=== PATIENT | female | born 1940 | race Caucasian/White ===

== ENCOUNTER 2018-05-03 07:38 | Outpatient (CLI) | payer MEDICARE ==
[2018-05-03] MEDS ORDERED: Iopamidol 370 76% 100 ML VIAL ONE (10:39)
[2018-05-03] MEDS ORDERED: Gadobenate Dimeglumine 529 MG/1 ML (20ML VIAL) ONE (10:45)
--- NOTE | 2018-05-03 12:38 | MRI ---
MRI PELVIS WITHOUT AND WITHOU CONTRAST: Comparison: None. History: Rectal pain and bleeding. Rectal cancer for staging. Technique: Multiplanar, multisequence MRI images were obtained of the pelvis without and with IV cont rast per rectal cancer protocol. FINDINGS: Tiny foci of high T2 signal in the lower uterine segment may represent nabothian cyst. The urinary bl adder is unremarkable. There is a circumferential mass involving the rectum. This mass is approximately 3.5 cm from the anus . This mass measures approximately 7.2 cm in length. The rectal wall is predominately circumferential ly thickened but is more prominently thickened along the left anterior lateral aspect where it measur es approximately 1.1 cm in thickness. Inferiorly, this mass abuts the pelvic floor. The fat planes be tween the outer rectal wall on the mediolateral left side are slightly blurred and this may extend in to the mesorectal fat. The mass is clear of the mesorectal fascia. There are multiple enlarged lymph nodes in the medial rectal fat. The largest measures 1.4 cm in size . These enlarged lymph nodes are seen bilaterally. The visualized small bowel is unremarkable. No marrow signal abnormality is present. No enlarged lymp h nodes are seen around the pelvic sidewalls. IMPRESSION: Rectal cancer as above. The patient appears to have a T3 tumor. This may be either a T3A or T3B tumor . The patient has multiple enlarged mesorectal fat lymph nodes. There are greater than 4 of these lym ph nodes that are enlarged making this an N2 stage. POS: [facility]
--- NOTE | 2018-05-03 14:00 | CT ---
CT OF THE CHEST WITH CONTRAST CT OF THE ABDOMEN WITH CONTRAST: Date: 05/03/18 COMPARISON: Pelvic MRI dated 05/03/18. HISTORY: Rectal cancer. Staging examination. TECHNIQUE: 1. Multiple contiguous axial images were obtained in a CT of the chest with contrast. Coronal reform ats were performed. 2. Multiple contiguous axial images were obtained in a CT of the abdomen only with contrast. PO cont rast was administered. Coronal reformats were performed. FINDINGS: CT CHEST: Atelectasis is seen in both lung bases. No suspicious pulmonary nodules are appreciated. No pneumotho rax or pleural effusion seen. The heart is normal in size without focal cardiac abnormality. No hilar or mediastinal lymphadenopath y are seen. Atherosclerotic calcifications are seen in the aorta. The bones of the thorax and chest wall soft tissues are unremarkable. CT ABDOMEN: There are two masses in the right lobe of the liver. The largest measures 3.1 cm in size. These magdalena s are suspicious for hepatic metastasis. No biliary dilatation is seen. The gallbladder is not seen a nd may have been removed. Kidneys, adrenal glands, spleen, and pancreas are unremarkable. No abdominal adenopathy is seen. The visualized large and small bowel are unremarkable. Degenerative changes are seen in the spine. No suspicious osseous lesions are identified. The abdomin al wall soft tissues are unremarkable. IMPRESSION: 1. No evidence of intrathoracic metastatic disease. 2. There are two lesions in the right lobe of the liver suspicious for hepatic metastases. POS: ALIC[facility]
== END 2018-05-03 07:39 | disposition home or self-care (01) ==
LOC: MRI 07:38
PROVIDERS: ATTEND Internal Medicine Hematology & Oncology
DX: C20 Malignant neoplasm of rectum (principal)
CPT/HCPCS: 71260; 72197; 74160; 82565; A9579

== ENCOUNTER 2018-05-09 08:36 | Day surgery (SDC) | payer MEDICARE ==
[2018-05-08 09:36] VITALS: BMI 27.1
[~2018-05-09 08:36] MED LIST: Prevnar 13-Val Conj/PF 0.5 ML SYRINGE IM ONE
[2018-05-09 08:58] LABS: PTT 26.1 SEC (22.9-36.1); Prothrombin Time 12.9 SEC (12.0-14.7)
[2018-05-09 09:41] VITALS: BP 140/68; TEMP 98.2
[2018-05-09] MEDS ORDERED: Sodium Bicarbonate 2.5 MEQ/5 ML VIAL ONE (10:03)
[2018-05-09] MEDS ORDERED: Midazolam HCl 2 mg/2 ml Vial ONE (10:03)
[2018-05-09] MEDS ORDERED: Fentanyl 100 MCG/2 ML VIAL ONE (10:04)
--- NOTE | 2018-05-09 12:43 | CT ---
CT GUIDED BIOPSY OF A LIVER MASS: HISTORY: Primary rectal cancer. Hepatic masses. Correlate for metastatic versus primary hepatic malignancy. COMPARISON: Abdomen CT from 05/03/2018. FINDINGS: Successful CT guided biopsy of a hepatic mass in the right hepatic lobe. Two 18 gauge core biopsy sa mples were obtained. Lesional tissue is present. TECHNIQUE: Consent obtained to perform a CT guided biopsy of a right hepatic lobe mass. The lesion was identifi ed. The skin was prepped and draped in a sterile fashion. Lidocaine 1%, buffered with sodium bicarb jean-claude, was used for local anesthesia. Under CT guidance, a 17 gauge metallic trocar was advanced int o the hepatic lesion. Through this trocar, two separate 18 gauge core biopsy samples were obtained. Pathology reports lesional tissue in the first sample. The patient tolerated the procedure well. P ost procedure image does not identify any findings of significant bleeding. There are no immediate p ost procedure complications. IMPRESSION: Successful CT guided biopsy of a right hepatic lobe mass. Final pathologic diagnosis pending. POS: ALICIA
== END 2018-05-09 12:30 | disposition home or self-care (01) ==
LOC: RAD 08:36
PROVIDERS: ATTEND Internal Medicine Hematology & Oncology
PROC: 0FB13ZX Excision of Right Lobe Liver, Percutaneous Approach, Diagnostic (ICD-10-PCS; principal; 2018-05-09)
DX: C20 Malignant neoplasm of rectum (principal); C78.7 Secondary malignant neoplasm of liver and intrahepatic bile duct; I10 Essential (primary) hypertension; G25.81 Restless legs syndrome; Z90.49 Acquired absence of other specified parts of digestive tract; Z88.8 Allergy status to other drugs, medicaments and biological substances; Z79.899 Other long term (current) drug therapy; Z98.890 Other specified postprocedural states
CPT/HCPCS: 36415; 47000; 77002; 85610; 85730; 88307; 88333; 88334; 88341; 88342; J2250; J3010

== ENCOUNTER 2018-05-18 14:07 | Outpatient (CLI) | payer MEDICARE ==
[2018-05-18 15:01] LABS: #Basophils 0.1 thou/uL (0.0-0.2); #Eosinphils 0.3 thou/uL (0.0-0.7); #Lymphocytes 1.6 thou/uL (1.20-3.40); #Monocytes 0.9 thou/uL (0.11-0.59); %Basophils 0.8 % (0.0-1.0); %Eosinophils 3.9 % (0.0-10.0); %Lymphocytes 23.9 % (21.0-51.0); %Monocytes 13.2 % (0.0-10.0); %Neutrophils 58.2 % (42.0-75.0); Hemoglobin 11.5 g/dL (12.0-16.0); Mean Corpuscular HGB CONC 33.5 g/dL (32.0-36.0); Mean Corpuscular Hemoglobin 31.5 pg (27.0-31.0); Mean Corpuscular Volume 93.9 fL (78.0-98.0); Mean Platelet Volume 8.1 fL (7.4-10.4); Platelet Count 304 thou/uL (130-400); RBC Distribution Width 12.6 % (11.5-14.5); Red Blood Cell (RBC) Count 3.65 mill/uL (4.20-5.40); White Blood Cell (WBC) Count 6.8 thou/uL (4.8-10.8)
[2018-05-18 15:27] LABS: Anion Gap 16 mmol/L (10-20); BUN (Urea Nitrogen) 12 mg/dL (9.8-20.1); Calc. Creatinine Clearance 0 mL/min (70-130); Calcium 9.7 mg/dL (7.8-10.44); Carbon Dioxide 27 mmol/L (23-31); Chloride 103 mmol/L (98-107); Estimated GFR-MDRD 54; Glucose 103 mg/dL (83-110); Potassium 3.6 mmol/L (3.5-5.1); Sodium 142 mmol/L (136-145)
== END 2018-05-18 14:08 | disposition home or self-care (01) ==
LOC: LABBT 14:07
PROVIDERS: ATTEND Surgery
DX: Z01.818 Encounter for other preprocedural examination (principal); C20 Malignant neoplasm of rectum
CPT/HCPCS: 80048; 85025; 93005; 93010

== ENCOUNTER 2018-05-19 06:35 | Day surgery (SDC) | payer MEDICARE ==
[2018-05-18 12:46] VITALS: BMI 26.5
[2018-05-19] MEDS ORDERED: PHENYLEPHRINE-NS 100 MCG/ML 10 ML SYRINGE ONE (07:47)
[2018-05-19] MEDS ORDERED: PROPOFOL 200 MG/20 ML VIAL ONE (07:47)
[2018-05-19] MEDS ORDERED: Ondansetron PF 4 MG/2 ML Vial ONE (07:47)
[2018-05-19] MEDS ORDERED: Lidocaine 1% PF 5 ML VIAL ONE (07:47)
[2018-05-19] MEDS ORDERED: Ketorolac Tromethamine 30 MG/ML VIAL ONE (07:47)
[2018-05-19] MEDS ORDERED: CEFAZOLIN 2 GM/50 ML BAG ONE (09:23)
[2018-05-19] MEDS ORDERED: Bupivacaine/Epinephrine 0.25% 30 ML VIAL ONE (09:31)
[2018-05-19] MEDS ORDERED: Famotidine/PF 20 mg/2ml Vial ONE (09:37)
--- NOTE | 2018-05-19 12:34 | EKG ---
Test Reason : PREOP Blood Pressure : / mmHG Vent. Rate : 066 BPM Atrial Rate : 066 BPM P-R Int : 156 ms QRS Dur : 132 ms QT Int : 458 ms P-R-T Axes : 056 -26 008 degrees QTc Int : 480 ms Normal sinus rhythm Right bundle branch block Abnormal ECG When compared with ECG of 18-MAY-2018 14:31, Electronic demand pacing is no longer Present Fusion complexes are no longer Present Premature ventricular complexes are no longer Present Abberant conduction is no longer Present Confirmed by OLY BOWLING ([id number]) on 05/19/2018 12:34:32 PM Referred By: HONORIO Confirmed By:OLY BOWLING
--- NOTE | 2018-05-19 12:40 | RAD ---
PORTABLE CHEST: 05/19/2018 PROVIDED CLINICAL HISTORY: Mediport insertion. COMPARISON: None. FINDINGS: The cardiac silhouette appears enlarged, which may be at least partially on the basis of a portable t echnique. A left subclavian implanted port is noted, the tip of which projects in the expected locat ion of the SVC. No focal consolidation, pleural fluid, or pneumothorax apparent. IMPRESSION: No evidence for an acute cardiopulmonary process. POS: ALICIA
--- NOTE | 2018-05-19 13:18 | PDOC.OP ---
Operative Note - Operative Note Operative Note: PROCEDURE: Left subclavian MediPort placement with fluoroscopic guidance SURGEON: Jacy Rahman M.D. DATE OF PROCEDURE: 05/19/2018 PREOPERATIVE DIAGNOSIS: Metastatic rectal cancer POSTOPERATIVE DIAGNOSIS: Metastatic rectal cancer HISTORY: Patient is diagnosed with metastatic rectal cancer. Chemotherapy has been recommended and the oncologist has requested MediPort placement for this. OPERATIVE PROCEDURE IN DETAIL: After informed consent was obtained and appropriate preoperative antibiotics were administered, the patient was taken to the operating room and placed in supine position and monitored anesthesia care was administered. The patient was then placed in Trendelenburg position and the subclavian vein accessed easily on the first attempt with excellent flow of dark venous non-pulsatile blood. A wire threaded easily and was confirmed to be in the superior vena cava by fluoroscopy. Additional local anesthesia was infused to the skin and subcutaneous tissues lateral and inferior to the access site. The skin incision was extended from the wire laterally and a subcutaneous pocket developed inferiorly. A Mediport was obtained and confirmed to fit in the subcutaneous pocket. This was secured inferiorly to the pectoralis fascia with a Prolene suture, which was clamped, but not tied. The dilator and sheath were then placed over the wire and the dilator and wire removed leaving the sheath in place. The clamped MediPort tubing was tunneled through the sheath, which was then split and removed leaving the MediPort tubing in place. The tubing was adjusted until the tip was confirmed by fluoroscopy to be in the superior vena cava just above the atrium. The tubing was clamped at the skin level and cut and the tubing secured to the port, which was then placed in the subcutaneous pocket. The previously placed suture was secured and two additional sutures were placed to fix the port in place within the pocket. The port was aspirated with the Soria needle and had excellent flow of dark venous non-pulsatile blood and easily flushed without resistance. The subcutaneous tissues were closed with a running Monocryl suture, following which the skin was closed with a running subcuticular Monocryl suture. Dermabond dressings were placed and the hub was again accessed through the skin and confirmed to easily aspirate and easily flush. The course of the catheter was confirmed by fluoroscopy to be smooth with the tip appropriately located in the superior vena cava. The patient was taken back to recovery in good condition. Estimated blood loss was minimal. There were no complications. There were no specimens.
== END 2018-05-19 12:55 | disposition home or self-care (01) ==
LOC: SDC 06:35
PROVIDERS: ATTEND Surgery
PROC: 02HV33Z Insertion of Infusion Device into Superior Vena Cava, Percutaneous Approach (ICD-10-PCS; principal; 2018-05-19)
PROC: B518ZZA Fluoroscopy of Superior Vena Cava, Guidance (ICD-10-PCS; 2018-05-19)
DX: C20 Malignant neoplasm of rectum (principal); I10 Essential (primary) hypertension; C78.7 Secondary malignant neoplasm of liver and intrahepatic bile duct; C77.9 Secondary and unspecified malignant neoplasm of lymph node, unspecified; Z88.8 Allergy status to other drugs, medicaments and biological substances
CPT/HCPCS: 36561; 71045; 77001; 93005; C1788; J0131; J1642; J1885; J2001; J2405; J2704; S0028

== ENCOUNTER 2018-07-21 07:34 | Outpatient (CLI) | payer MEDICARE ==
--- NOTE | 2018-07-21 10:24 | CT ---
CHEST CT WITH CONTRAST ABDOMEN CT WITH CONTRAST PELVIC CT WITH CONTRAST: HISTORY: Malignant neoplasm of the rectum. The patient is undergoing chemotherapy. Evaluate for response to therapy. Hepatic mass. FINDINGS: CHEST CT: Redemonstration of essentially stable, nonspecific mediastinal lymph nodes located in the paratrachea l, precarinal, and AP window. The largest lymph node is in the precarinal region measuring 1.6 x 0.8 cm. Fatty hilum is preserved. Previously, this lymph node measured 1.5 x 1.1 cm. Heart size is nor mal. No significant pericardial fluid There is atherosclerosis of a nonaneurysmal aorta. No eviden ce of axillary lymphadenopathy. There are dependent atelectatic changes. There is no mass. No consolidation. No pleural effusion o r pneumothorax. Chronic changes in the lingula are noted. Trachea and central bronchi are patent. ABDOMEN CT: Redemonstration of 2 intrahepatic lesions, in the right hepatic lobe. The 1st lesion measures 2.4 x 1.3 cm (previously measuring 3.1 x 2.3 cm). The 2nd lesion measures 1.8 x 1.5 c (previously measurin g 2.9 x 2.5 cm). There has been interval decrease in size of both lesions. No new hepatic lesions a re appreciated. The spleen, pancreas, and adrenal glands have stable enhancement. Symmetric enhancement of the kidneys. No obstructive uropathy. Stable hypodensity in the mid to low er aspect of the right kidney, too small to further characterize. There is stranding of the central abdominal mesentery. There are some nonspecific mesenteric lymph n odes. Visualized alimentary canal is unremarkable, with regards to the stomach and small bowel loops. Ileo cecal junction is normal. Scattered fecal material in a nondistended, nondilated colon. There is ev idence of an asymmetric mass in the distal sigmoid colon and rectum There do appear to be some enlar ged perirectal lymph nodes. Ear Nose Throat Physician anterior left perirectal lymph node measures 0.7 x 0.6 cm (previously 1.3 cm). There is a second lymph node on the left lateral aspect of the rectum measurin g 0.5 x 0.9 cm (previously this lymph node measured 1.1 cm x 0.9 cm). P[address]: Uterus and adnexal structures are unremarkable. Unremarkable urinary bladder. Trace amount of free fluid in the pelvis. No free air. No lytic or blastic lesion in the osseous structures. IMPRESSION: 1. Partial response to therapy. Interval decrease in size of 2 separate lesions in the liver. 2. Distal sigmoid colon/rectal mass. There does appear to be a prominent perirectal lymph node. Th e degree of perirectal lymphadenopathy is somewhat difficult to directly compare given differences in modality (CT versus MRI). Nevertheless, the lymph nodes do appear to be present and slightly decrea sing in size. A direct sales representative lymph node appears to be in the anterior left region measuring 0.6 x 0.7 cm. Previously, this lymph node measured approximately 1.3 cm. POS: [facility]
[2018-07-21] MEDS ORDERED: Iopamidol 370 76% 100 ML VIAL ONE (16:35)
== END 2018-07-21 07:35 | disposition home or self-care (01) ==
LOC: CT 07:34
PROVIDERS: ATTEND Internal Medicine Hematology & Oncology
DX: C20 Malignant neoplasm of rectum (principal); K63.89 Other specified diseases of intestine; R59.0 Localized enlarged lymph nodes
CPT/HCPCS: 71260; 74177

== ENCOUNTER 2019-07-12 10:31 | Outpatient (CLI) | payer MEDICARE ==
--- NOTE | 2019-07-12 12:10 | CT ---
CT CHEST WITH IV CONTRAST CT ABDOMEN WITH IV CONTRAST CT PELVIS WITH IV CONTRAST: Date: 07/12/2019 COMPARISON: 07/21/2018. HISTORY: Cancer. Patient is status post chemo/radiation therapy, liver surgery, cholecystectomy, and colostomy. Malignant neoplasm of rectum. FINDINGS: No mediastinal, hilar, or axillary mass or lymphadenopathy seen. No pleural or pericardial effusions are identified. There has been interval development of a new 5 mm solid nodule in the left upper lobe . Chronic changes in the lingula and dependent changes in the lung bases are again seen. There are postop changes of partial right hepatectomy with a 4.0 cm fluid collection in the region of the surgery, likely postop hematoma/seroma. No liver lesions are seen. The patient is post cholecyst ectomy. The spleen, pancreas, adrenal glands, and left kidney are normal. A hypodensity in the right kidney i s stable, likely cyst. Interval development of lymphadenopathy has occurred in the portocaval (2.0 x 2.5 cm) and aortocaval (17 mm) lymph nodes. No free air is identified. There is stranding on the presacral fat with interval development of a 3.5 x 1.7 x 4.0 cm fluid collection posterior to and abutting the uterus in the presacral space. There i s a left lower quadrant colostomy. There are vascular calcifications without evidence of aneurysmal dilatation of the abdominal aorta. T he small bowel loops are not abnormally dilated. There are degenerative changes in the thoracolumbar spine. No osteolytic or osteoblastic lesions are seen. IMPRESSION: 1. Interval development of a 5.0 mm left upper lobe lung nodule, suspicious finding. 2. Enlarged lymph nodes in the portocaval and aortocaval regions, suspicious for metastatic disease. 3. Fluid collection in the presacral space may represent a postop seroma. RECOMMENDATION: Recommend further evaluation with PET scan. POS: OFF
[2019-07-12] MEDS ORDERED: Iopamidol-370 76% 500 ML 1 ML ONE (16:25)
== END 2019-07-12 10:32 | disposition home or self-care (01) ==
LOC: BICCT 10:31
PROVIDERS: ATTEND Internal Medicine Hematology & Oncology
DX: C20 Malignant neoplasm of rectum (principal); M96.843 Postprocedural seroma of a musculoskeletal structure following other procedure; R91.1 Solitary pulmonary nodule
CPT/HCPCS: 71260; 74177; Q9967

== ENCOUNTER 2019-07-19 10:18 | Outpatient (CLI) | payer MEDICARE ==
--- NOTE | 2019-07-20 10:53 | PET ---
PET CT: HISTORY: 79-year-old female with malignant neoplasm of rectum, retroperitoneal lymph nodes. Last chemo/radiati on therapy was in December 2018. Exam requested to evaluate response to treatment and subsequent therap y. TECHNIQUE: PET scanning with CT attenuation correction was performed from the base of the brain through the prox imal thighs following the intravenous administration of 11.4 mCi [id number]. COMPARISON: None. CORRELATION: CT chest/abdomen/pelvis of 07/12/2019. FINDINGS: No torey hypermetabolism is seen in the neck, chest, or axilla. No hypermetabolic pulmonary nodules, liver, adrenal, or skeletal lesions are seen. Numerous hypermetabolic abdominal lymph nodes are seen with SUVs of 12.8 in the portocaval, 6 in the celiac axis, 27 in the retroperitoneal (aortocaval), and 5.8 at the aortic bifurcation lymph nodes. There is mildly increased FDG localization surrounding the presacral fluid with a maximum SUV of 3.8 on the right. This most likely represents postop/post radiation change although the possibility of a viable tumor cannot be completely excluded. The 5 mm lung nodule in the left upper lobe noted on the CT scan demonstrates no abnormal FDG localiz ation which may be due to the size of the nodule being less than the resolution of the PET scan. IMPRESSION: Extensive abdominal lymph torey metastases. Discussed over the telephone with Dr. Juan Luis Chaidez at 1020 hours on 07/20/2019. CODE CR. POS: ALICIA
== END 2019-07-19 10:19 | disposition home or self-care (01) ==
LOC: PET 10:18
PROVIDERS: ATTEND Internal Medicine Hematology & Oncology
DX: C20 Malignant neoplasm of rectum (principal); C48.0 Malignant neoplasm of retroperitoneum; R91.1 Solitary pulmonary nodule; C77.2 Secondary and unspecified malignant neoplasm of intra-abdominal lymph nodes
CPT/HCPCS: 78815; A9552

== ENCOUNTER 2021-02-05 09:38 | Outpatient (CLI) | payer MEDICARE | END 2021-02-05 09:39 | disposition home or self-care (01) | LOC: PET 09:38 | PROVIDERS: ATTEND Surgery | DX: C20 Malignant neoplasm of rectum (principal); R14.0 Abdominal distension (gaseous) | CPT/HCPCS: 78815; A9552 ==